=== PATIENT | female | born 1985 | race Caucasian/White ===

== ENCOUNTER 2017-10-18 06:33 | Inpatient (IN) | payer OTHER ==
[~2017-10-18] VITALS: Ht 160 cm; Wt 3.6 kg
[2017-10-18] MEDS ORDERED: PRENATAL TABLE1 EAC1 PO (08:13)
[2017-10-18] MEDS ORDERED: IRON325 MG PO (08:14)
[2017-10-20] MEDS ORDERED: OXYC1TAB9 PO (12:14)
[2017-10-20] MEDS ORDERED: DOCUSATE SODIU100 MG PO (12:14)
[2017-10-20] MEDS ORDERED: PREPLUS CA-FE1 EACH PO (12:14)
== END 2017-10-21 13:19 | disposition home or self-care (01) | DRG 766 ==
LOC: LDR 06:33 → SURG-SUITE 11:34
PROVIDERS: Obstetrics & Gynecology
PROC: 4A033R1 Measurement of Arterial Saturation, Peripheral, Percutaneous Approach (ICD-10-PCS; 2017-10-18)
PROC: 4A1HXCZ Monitoring of Products of Conception, Cardiac Rate, External Approach (ICD-10-PCS; 2017-10-18)
PROC: 10D00Z1 Extraction of Products of Conception, Low, Open Approach (ICD-10-PCS; principal; 2017-10-18 08:30)
DX: O66.2 Obstructed labor due to unusually large fetus (principal); O99.824 Streptococcus B carrier state complicating childbirth; Z3A.40 40 weeks gestation of pregnancy; Z37.0 Single live birth

== ENCOUNTER 2022-11-04 07:48 | Day surgery (SDC) | payer OTHER ==
[~2022-11-04] VITALS: Ht 160 cm; Wt 103.0 kg
[~2022-11-04 07:48] MED LIST: DOCUSATE SODIU100 MG PO; IRON325 MG PO; LORAZEPAM0.5 MG PO; OXYC1TAB9 PO; PRENATAL TABLE1 EAC1 PO; PREPLUS CA-FE1 EACH PO
[2022-11-04] MEDS ORDERED: PERCOCET 5-3251 EACH PO (10:05)
[2022-11-04] MEDS ORDERED: ZOFRAN8 MG PO (10:08)
[2022-11-04] MEDS ORDERED: PROTONIX40 MG PO (10:08)
[2022-11-04] MEDS ORDERED: DICY20TA PO (10:09)
== END 2022-11-04 14:25 | disposition home or self-care (01) ==
LOC: CIR.AMB 07:48
PROVIDERS: ATTEND Surgery
DX: K80.11 Calculus of gallbladder with chronic cholecystitis with obstruction (principal); Z88.6 Allergy status to analgesic agent; Z20.822 Contact with and (suspected) exposure to COVID-19